=== PATIENT | female | born 2000 ===

== ENCOUNTER 2024-07-18 14:15 | Outpatient (OUT) | payer BC, SELFPAY ==
--- NOTE | 2024-07-18 14:25 | US_ITS ---
The [address] [address] Patient Name: RICKEY HERNANDEZ MRN: [id number] date: 2000 Sex: F Assigned Patient Location: US Current Patient Location: Accession/Order Number: [id number] Exam Date: 07/18/2024 14:30 Report Date: 07/19/2024 07:31 At the request of: JANELLE BUENROSTRO Procedure: US pelvis w/ transvaginal EXAMINATION: US pelvis w/ transvaginal HISTORY: Right ovarian cyst seen on outside CT study COMPARISON: No relevant comparison available. TECHNIQUE: Transabdominal and/or transvaginal sonographic examination was performed as indicated by examination type. FINDINGS: UTERUS: Normal size and appearance. Uterus size: 6.0 x 2.9 x 2.4 cm ENDOMETRIUM: Normal homogeneous appearance. Endometrial thickness: 3 RIGHT OVARY: Contains a 1.7 cm dominant follicle versus benign-appearing cyst, and several other smaller follicles. Duplex Doppler demonstrates normal waveform and flow; resistive index 4.0 x 2.4 x 2.6 cm. Ovary size: 0.5 LEFT OVARY: Normal size and appearance. Duplex Doppler demonstrates normal waveform and flow; resistive index 2.5 x 2.2 x 1.6 cm. Ovary size: 0.6 CUL-DE-SAC: Unremarkable. No significant free fluid. BLADDER: Unremarkable. OTHER: None. US/US pelvis w/ transvaginal IMPRESSION: 1. Right ovarian cyst consistent with a benign cyst/dominant follicle. 2. No suspicious findings. Electronically authenticated by: MARY DONOHUE Date: 07/19/2024 07:31
== END 2024-07-18 14:16 | disposition home or self-care (01) ==
LOC: US 14:18
PROVIDERS: Visit Provider Obstetrics & Gynecology
DX: N83.201 Unspecified ovarian cyst, right side (principal)
CPT/HCPCS: 76830; 76856

== ENCOUNTER 2024-08-28 14:29 | Outpatient (REF) | payer BC, SELFPAY ==
--- OUTSIDE RECORDS SUMMARY | 2024-08-28 14:45 | XMS_ITS | CCD ---
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 Comment on above: Performed By: #### L IPASE, MG, CMP, CBC #### [facility] [address] [place] [address] [place] Creatinine [Mass/volume] in Serum or PlasmaOrdered By: Jacy Santos on 06-30-2024 Creatinine [Mass/Vol] Creatinine [Mass/v olume] in Serum or Plasma 0.60-1.[address] [facility] Eosinophils Auto (Bld) [#/Vo l]Ordered By: Jacy Santos on 06-30-2024 Eosinophils (Bld) [#/Vol] Automated eosinophil count 0.0-0.45 [facility] Eosinophils/100 WBC Auto (Bl d)Ordered By: Jacy Santos on 06-30-2024 Eosinophils/100 WBC (Bld) Automated eosinophil % . [facility] Erythrocyte distribution wid th Auto (RBC) [Ratio]Ordered By: Jacy Santos on 06-30-2024 Erythrocyte distribution width (RBC) [Ratio] Erythrocyte distribution width [Ratio] by Automated count 11.9-15.[address] [facility] Globulin Calc (S) [Mass/Vol] Ordered By: Jacy Santos on 06-30-2024 Globulin (S) [Mass/Vol] Serum globulin measurement by calculation (mass/volume) [facility] Glucose [Mass/volume] in Ser um or PlasmaOrdered By: Jacy Santos on 06-30-2024 Glucose [Mass/Vol] Glucose [Mass/volume ] in Serum or Plasma Low 70-[address] [facility] Comment on above: ADA recommended refe rence rangeRandom Glucose Reference Range is dependent on time and content of last meal. Glucose of more than 200 mg/dL in a nonstressed, ambulatory subject supports the diagnosis of Diabetes Mellitus. Glucose [Mass/volume] in Uri ne by Test stripOrdered By: Jacy Santos on 06-30-2024 Glucose Test strip (U) [Mass/Vol] Glucose [Mass/volume] in Urine by Test strip Normal [facility] HCG ( test) IA.rapi d Ql (U)Ordered By: Jacy Santos on 06-30-2024 HCG ( test) Ql (U) Urine human chorionic gonadotropin (hCG) detection by immunoassay [facility] HCG,Urineon 06-30-2024 Beta HCG ( test) Ql (U) Negative Normal [facility] Comment on above: Order Comment: Name Collection Type:: Clean-Voided Midstream Result Comment: PERF ORMED BY: [place] [address] PATHOLOGIST CLINICAL APPEALS REVIEWER SUMMER RAMON M.D. Performed By: #### U A, [facility] #### [address] Hematocrit Auto (Bld) [Volum e fraction]Ordered By: Jacy Santos on 06-30-2024 Hematocrit (Bld) [Volume fraction] Hematocrit [Volume Fraction] of Blood by Automated count 34.0-46.[address] [facility] Hemoglobin Test strip Ql (U) Ordered By: Jacy Santos on 06-30-2024 Hemoglobin Ql (U) Hemoglobin [Presence ] in Urine by Test strip Negative [facility] Hemoglobin [Mass/volume] in BloodOrdered By: Jacy Santos on 06-30-2024 Hemoglobin (Bld) [Mass/Vol] Hemoglobin [Mass/volume] in Blood 11.8-15.[address] [facility] Ketones Test strip Ql (U)Ord ered By: Jacy Santos on 06-30-2024 Ketones Ql (U) Ketones [Presence] i n Urine by Test strip Negative [facility] Leukocyte esterase [Presence ] in Urine by Test stripOrdered By: Jacy Santos on 06-30-2024 Leukocyte esterase Test strip Ql (U) Leukocyte esterase [Presence] in Urine by Test strip Negative [facility] Leukocytes [#/volume] correc michael for nucleated erythrocytes in Blood by Automated counOrdered By: Jacy Santos on 06-30-2024 WBC corrected for nucl RBC Auto (Bld) [#/Vol] Leukocytes [#/volume] corrected for nucleated erythrocytes in Blood by Automated coun 3.8-11.[address] [facility] Lipaseon 06-30-2024 Lipase [Catalytic activity/Vol] 13.0 U/L Normal 11.0-82.0 [facility] Comment on above: Result Comment: PERF ORMED BY: [place] [address] PATHOLOGIST CLINICAL APPEALS REVIEWER SUMMER RAMON M.D. Performed By: #### L IPASE, MG, CMP, CBC #### [facility] [address] [place] [address] Lipase [Enzymatic activity/v olume] in Serum or PlasmaOrdered By: Jacy Santos on 06-30-2024 Lipase [Catalytic activity/Vol] Lipase [Enzymatic activity/volume] in Serum or Plasma 11.0-82.[address] [facility] Lymphocytes Auto (Bld) [#/Vo l]Ordered By: Jacy Santos on 06-30-2024 Lymphocytes (Bld) [#/Vol] Lymphocytes [#/volume] in Blood by Automated count 1.00-4.[address] [facility] Lymphocytes/100 WBC Auto (Bl d)Ordered By: Jacy Santos on 06-30-2024 Lymphocytes/100 WBC (Bld) Lymphocytes/100 leukocytes in Blood by Automated count . [facility] MCH Auto (RBC) [Entitic mass ]Ordered By: Jacy Santos on 06-30-2024 MCH (RBC) [Entitic mass] MCH [Entitic mass] by Automated count 24.7-34.[address] [facility] MCHC Auto (RBC) [Mass/Vol]Or dered By: Jacy Santos on 06-30-2024 MCHC (RBC) [Mass/Vol] MCHC [Mass/volume] by Automated count 32.0-35.[address] [facility] MCV Auto (RBC) [Entitic vol] Ordered By: Jacy Santos on 06-30-2024 MCV (RBC) [Entitic vol] MCV [Entitic volume] by Automated count 80-[address] [facility] Magnesiumon 06-30-2024 Magnesium [Mass/Vol] 2.1 mg/dL Normal 1.9-2.7 [facility] Comment on above: Performed By: #### L IPASE, MG, CMP, CBC #### [address] Magnesium [Mass/volume] in S lia or PlasmaOrdered By: Jacy Santos on 06-30-2024 Magnesium [Mass/Vol] Magnesium [Mass/vol ume] in Serum or Plasma 1.9-2.[address] [facility] Monocyte distribution width [Entitic volume] in Blood by AutomatedOrdered By: Jacy Santos on 06-30-2024 Monocyte distribution width Auto (Bld) [Entitic vol] Monocyte distribution width [Entitic volume] in Blood by Automated 0.00-20.[address] [facility] Monocytes Auto (Bld) [#/Vol] Ordered By: Jacy Santos on 06-30-2024 Monocytes (Bld) [#/Vol] Automated blood monocyte count 0.0-0.[address] [facility] Monocytes/100 WBC Auto (Bld) Ordered By: Jacy Santos on 06-30-2024 Monocytes/100 WBC (Bld) Automated monocyte % . [facility] Neutrophils Auto (Bld) [#/Vo l]Ordered By: Jacy Santos on 06-30-2024 Neutrophils (Bld) [#/Vol] Neutrophils [#/volume] in Blood by Automated count 1.8-7.[address] [facility] Neutrophils/100 WBC Auto (Bl d)Ordered By: Jacy Santos on 06-30-2024 Neutrophils/100 WBC (Bld) Automated neutrophil % . [facility] Nitrite Test strip Ql (U)Ord ered By: Jacy Santos on 06-30-2024 Nitrite Ql (U) Nitrite [Presence] i n Urine by Test strip Negative [facility] No Panel InformationOrdered By: Jacy Santos on 06-30-2024 Estimated GFR (CKD-EPI) > 60.0 mL/Min [facility] Pharmacy Creatinine Clearance (Chem 123.[address] [facility] Nucleated erythrocytes [Pres ence] in Blood by Automated countOrdered By: Jacy Santos on 06-30-2024 Nucleated RBC Auto Ql (Bld) Nucleated erythrocytes [Presence] in Blood by Automated count 0-0.[address] [facility] Platelet mean volume Auto (B ld) [Entitic vol]Ordered By: Jacy Santos on 06-30-2024 Platelet mean volume (Bld) [Entitic vol] Platelet mean volume [Entitic volume] in Blood by Automated count 6.3-10.[address] [facility] Platelets Auto (Bld) [#/Vol] Ordered By: Jacy Santos on 06-30-2024 Platelets (Bld) [#/Vol] Platelets [#/volume] in Blood by Automated count 150-[address] [facility] Potassium [Moles/volume] in Serum or PlasmaOrdered By: Jacy Santos on 06-30-2024 Potassium [Moles/Vol] Potassium [Moles/v olume] in Serum or Plasma 3.5-5.[address] [facility] Protein Test strip (U) [Mass /Vol]Ordered By: Jacy Santos on 06-30-2024 Protein (U) [Mass/Vol] Protein [Mass/vol ume] in Urine by Test strip Negative [facility] Protein [Mass/volume] in Ser um or PlasmaOrdered By: Jacy Santos on 06-30-2024 Protein [Mass/Vol] Protein [Mass/volume ] in Serum or Plasma 6.4-8.[address] [facility] RBC Auto (Bld) [#/Vol]Ordere d By: Jacy Santos on 06-30-2024 RBC (Bld) [#/Vol] Erythrocytes [#/volu me] in Blood by Automated count 3.60-5.[address] [facility] Respiratory specimen influen za A virus, influenza B virus, respiratory syncytical virOrdered By: Jacy Santos on 06-30-2024 SARS-CoV-2 (COVID-19) RNA ROXI+probe Ql (Unsp spec) Respiratory specimen influenza A virus, influenza B virus, respiratory syncytical vir [facility] Serum or plasma albumin/glob ulin mass ratioOrdered By: Jacy Santos on 06-30-2024 Albumin/Globulin [Mass ratio] Serum or plasma albumin/globulin mass ratio [facility] Serum or plasma anion gap de terminationOrdered By: Jacy Santos on 06-30-2024 Anion gap [Moles/Vol] Serum or plasma an ion gap determination 6.0-15.[address] [facility] Sodium [Moles/volume] in Ser um or PlasmaOrdered By: Jacy Santos on 06-30-2024 Sodium [Moles/Vol] Sodium [Moles/volume ] in Serum or Plasma 136-[address] [facility] Specific gravity Test strip (U) [Rel density]Ordered By: Jacy Santos on 06-30-2024 Specific gravity (U) [Rel density] Specific gravity of Urine by Test strip High 1.001-1.[address] [facility] Urea nitrogen [Mass/volume] in Serum or PlasmaOrdered By: Jacy Santos on 06-30-2024 Urea nitrogen [Mass/Vol] Urea nitrogen [Mass/volume] in Serum or Plasma 7-[address] [facility] Urinalysison 06-30-2024 Appearance (U) Clear Normal Clear [facility] Comment on above: Order Comment: Name Collection Type:: Clean-Voided Midstream Performed By: #### U A, UHCG #### [facility] [address] [place] [address] [place] Bilirubin,Urine Negative Normal Negative [facility] Comment on above: Order Comment: Name Collection Type:: Clean-Voided Midstream Performed By: #### U A, UHCG #### [address] Color (U) Light-Yellow Normal Yellow [facility] Comment on above: Order Comment: Name Collection Type:: Clean-Voided Midstream Performed By: #### U A, UHCG #### [address] Glucose Ql (U) Normal Normal Normal [facility] Comment on above: Order Comment: Name Collection Type:: Clean-Voided Midstream Performed By: #### U A, UHCG #### [address] Ketones Ql (U) Negative Normal Negative [facility] Comment on above: Order Comment: Name Collection Type:: Clean-Voided Midstream Performed By: #### U A, UHCG #### [address] Leukocyte esterase Test strip Ql (U) Negative Normal Negative [facility] Comment on above: Order Comment: Name Collection Type:: Clean-Voided Midstream Performed By: #### U A, UHCG #### [place] [address] [place] Nitrite,Urine Negative Normal Negative [facility] Comment on above: Order Comment: Name Collection Type:: Clean-Voided Midstream Performed By: #### U A, UHCG #### [place] [address] [place] Occult Blood,Urine Negative Normal Negative [facility] Comment on above: Order Comment: Name Collection Type:: Clean-Voided Midstream Performed By: #### U A, UHCG #### [place] [address] [place] pH (U) 6.0 [pH] Normal 5.0-9.0 [facility] Comment on above: Order Comment: Name Collection Type:: Clean-Voided Midstream Performed By: #### U A, UHCG #### [facility] [address] Protein,Urine Negative Normal Negative [facility] Comment on above: Order Comment: Name Collection Type:: Clean-Voided Midstream Performed By: #### U A, UHCG #### [facility] [address] Specificy [place],Urine 1.032 High 1.001-1.030 [facility] Comment on above: Order Comment: Name Collection Type:: Clean-Voided Midstream Performed By: #### U A, UHCG #### [facility] [address] Urobilinogen,Urine Normal Normal Normal [facility] Comment on above: Order Comment: Name Collection Type:: Clean-Voided Midstream Performed By: #### U A, UHCG #### [address] Urobilinogen Test strip (U) [Mass/Vol]Ordered By: Jacy Santos on 06-30-2024 Urobilinogen (U) [Mass/Vol] Urobilinogen [Mass/volume] in Urine by Test strip Normal [facility] WBC Auto (Bld) [#/Vol]Ordere d By: Jacy Santos on 06-30-2024 WBC (Bld) [#/Vol] Leukocytes [#/volume ] in Blood by Automated count 3.8-11.[address] [facility] pH Test strip (U)Ordered By: Jacy Santos on 06-30-2024 pH (U) pH of Urine by Test strip 5.0-9.[address] [facility] PAP ACOG PANEL 2: to 29on 11-09-2022 . . Normal [facility] Comment on above: Performed By: #### [id number] #### [facility] [address] [address] [address] Elizabeth Ta Age Gdln ACOG Testing Normal [facility] Comment on above: Performed By: #### [id number] #### [facility] [address] [place] [address] Dr. Elizabeth Ta DIAGNOSIS: Comment Normal [facility] Comment on above: Result Comment: NEGA TIVE FOR INTRAEPITHELIAL LESION OR MALIGNANCY. Performed By: #### [id number] #### [facility] [address] [place] [address] Dr. Elizabeth Ta Methodology: Comment Normal [facility] Comment on above: Result Comment: This liquid based ThinPrep(R) pap test was screened with the use of an image guided system. Performed By: #### [id number] #### [facility] [address] [place] [address] Dr. Elizabeth Ta Note: Comment Normal [facility] Comment on above: Result Comment: The Pap smear is a screening test designed to aid in the detection of premalignant and malignant conditions of the uterine cervix. It is not a diagnostic procedure and should not be used as the sole means of detecting cervical cancer. Both false-positive and false-negative reports do occur. . Performed By: #### [id number] #### [facility] [address] [place] [address] Dr. Elizabeth Ta Performed by: Comment Normal [facility] Comment on above: Result Comment: Syed Puentes, Migrant Leader (ASCP) Performed By: #### [id number] #### [facility] [address] [place] [address] Dr. Elizabeth Ta Reflex Criteria: Comment [facility] Comment on above: Result Comment: The HPV DNA reflex criteria were not met with this specimen result therefore, no HPV testing was performed. . Performed By: #### [id number] #### [facility] [address] [place] [address] Dr. Elizabeth Ta Specimen adequacy: Comment Normal [facility] Comment on above: Result Comment: Sati sfactory for evaluation. Endocervical and/or squamous metaplastic cells (endocervical component) are present. Performed By: #### [id number] #### [facility] [address] [place] [address] Dr. Elizabeth Ta Amphetamine Screen Ql (U)Ord ered By: Ney Perez on 04-20-2022 Amphetamines Ql (U) Negative Negative [facility] Barbiturates [Presence] in U rineOrdered By: Ney Perez on 04-20-2022 Barbiturates Ql (U) Negative Negative [facility] Benzodiazepines [Presence] i n UrineOrdered By: Ney Perez on 04-20-2022 Benzodiazepines Ql (U) Negative Negative [facility] Cannabinoids [Presence] in U rine by Screen methodOrdered By: Ney Perez on 04-20-2022 Cannabinoids Screen Ql (U) Positive Negative [facility] Comment on above: These are unconfirme d results and should not be used for legal purposes. Drug Cut-Off Concentration: AMPH 1000 ng/mL GREGORIA 200 ng/mL JENNY 200 ng/mL COCM 300 ng/mL OP 300 ng/mL PCP 25 ng/mL THC 20 ng/mL HCG ( test) IA.rapi d Ql (U)Ordered By: Ney Perez on 04-20-2022 HCG ( test) Ql (U) Negative [facility] Laboratory - Drug toxicology Ordered By: Ney Perez on 04-20-2022 Opiates Ql (U) Negative Negative [facility] Phencyclidine Screen Ql (U)O rdered By: Ney Perez on 04-20-2022 Phencyclidine Ql (U) Negative Negative [facility] Urine cocaine detectionOrder ed By: Ney Perez on 04-20-2022 Cocaine Ql (U) Negative Negative [facility] Albumin [Mass/volume] in Ser um or PlasmaOrdered By: Ney Perez on 04-18-2022 Albumin [Mass/Vol] 4.2 g/dL 3.2-5.5 [facility] Basophils Auto (Bld) [#/Vol] Ordered By: Ney Perez on 04-18-2022 Basophils (Bld) [#/Vol] 0.0 10*3/uL 0.0-0.[address] [facility] Basophils/100 WBC Auto (Bld) Ordered By: Ney Perez on 04-18-2022 Basophils/100 WBC (Bld) 1.1 % . [facility] COVID-19 Positive/NegativeOr dered By: Ney Perez on 04-18-2022 SARS-CoV-2 (COVID-19) N gene ROXI+probe Ql (Resp) Negative Negative [facility] Comment on above: Testing for SARS-CoV -2 by RT-PCRThis test was developed and its performance characteristics determined by [employer] ([employer]) and validated at the [facility]. This test has not been FDA cleared or approved. This test has been authorized by FDA under an Emergency Use Authorization (EUA). This test has been validated in accordance with the FDA's Guidance Document (Policy for Diagnostics Testing in Laboratories Certified to Perform High Complexity Testing under CLIA prior to Emergency Use Authorization for Coronavirus Disease-2019 during the Public Health Emergency) issued on October 03, 2019. This test is only authorized for the duration of time the declaration that circumstances exist justifying the authorization of the emergency use of in vitro diagnostic tests for detection of SARS-CoV-2 virus and/or diagnosis of COVID-19 infection under section 564(b)(1) of the Act, 21 U.S.C. 360bbb-3(b)(1), unless the authorization is terminated or revoked sooner. Creatinine and Glomerular fi ltration rate.predicted panel (S/P/Bld)Ordered By: Ney Perez on 04-18-2022 Creatinine [Mass/Vol] 0.70 mg/dL 0.44-1.03 [facility] Eosinophils Auto (Bld) [#/Vo l]Ordered By: Ney Perez on 04-18-2022 Eosinophils (Bld) [#/Vol] 0.1 10*3/uL 0.0-0.[address] [facility] Eosinophils/100 WBC Auto (Bl d)Ordered By: Ney Perez on 04-18-2022 Eosinophils/100 WBC (Bld) 1.4 % . [facility] Erythrocyte distribution wid th Auto (RBC) [Ratio]Ordered By: Ney Perez on 04-18-2022 Erythrocyte distribution width (RBC) [Ratio] 13.0 % 11.9-15.[address] [facility] Estimated glomerular filtrat ion rate (GFR) non- AmericanOrdered By: Ney Perez on 04-18-2022 GFR/1.73 sq M.predicted among non-blacks MDRD (S/P/Bld) [Vol rate/Area] > 60 mL/Min [facility] Globulin Calc (S) [Mass/Vol] Ordered By: Ney Perez on 04-18-2022 Globulin (S) [Mass/Vol] 2.4 g/dL [facility] Hematocrit Auto (Bld) [Volum e fraction]Ordered By: Ney Perez on 04-18-2022 Hematocrit (Bld) [Volume fraction] 40.3 % 34.0-46.[address] [facility] Hemoglobin [Mass/volume] in BloodOrdered By: Ney Perez on 04-18-2022 Hemoglobin (Bld) [Mass/Vol] 13.4 g/dL 11.8-15.[address] [facility] Laboratory - CoagulationOrde red By: Ney Perez on 04-18-2022 PT Coag (PPP) [Time] 11.6 s 9.0-12.9 [facility] - Hematology and Cell countsOrdered By: Ney Perez on 04-18-2022 Nucleated RBC/100 WBC (Bld) [Ratio] 0.1 % 0-0.[address] [facility] Leukocytes [#/volume] in Blo od by Automated countOrdered By: Ney Perez on 04-18-2022 WBC (Bld) [#/Vol] 4.5 10*3/uL 4.5-11.0 [facility] Lymphocytes Auto (Bld) [#/Vo l]Ordered By: Ney Perez on 04-18-2022 Lymphocytes (Bld) [#/Vol] 1.8 10*3/uL 1.00-4.[address] [facility] Lymphocytes/100 WBC Auto (Bl d)Ordered By: Ney Perez on 04-18-2022 Lymphocytes/100 WBC (Bld) 39.0 % . [facility] MCH Auto (RBC) [Entitic mass ]Ordered By: Ney Perez on 04-18-2022 MCH (RBC) [Entitic mass] 31.4 pg 24.7-34.[address] [facility] MCHC Auto (RBC) [Mass/Vol]Or dered By: Ney Perez on 04-18-2022 MCHC (RBC) [Mass/Vol] 33.2 g/dL 32.0-35.0 [facility] MCV Auto (RBC) [Entitic vol] Ordered By: Ney Perez on 04-18-2022 MCV (RBC) [Entitic vol] 94.4 fL 80-[address] [facility] Monocytes Auto (Bld) [#/Vol] Ordered By: Ney Perez on 04-18-2022 Monocytes (Bld) [#/Vol] 0.5 10*3/uL 0.0-0.[address] [facility] Monocytes/100 WBC Auto (Bld) Ordered By: Ney Perez on 04-18-2022 Monocytes/100 WBC (Bld) 10.3 % . [facility] Neutrophils Auto (Bld) [#/Vo l]Ordered By: Ney Perez on 04-18-2022 Neutrophils (Bld) [#/Vol] 2.2 10*3/uL 1.8-7.[address] [facility] Neutrophils/100 WBC Auto (Bl d)Ordered By: Ney Perez on 04-18-2022 Neutrophils/100 WBC (Bld) 48.2 % . [facility] [facility] No Panel InformationOrdered By: Ney Perez on 04-18-2022 Estimated GFR () > 60 mL/Min [facility] Comment on above: GFR estimated refere nce range: According to KDOQI guidelines, <60 ml/min/1.73m2 is sufficient to diagnose a patient with chronic kidney disease. Pharmacy Creatinine Clearance (Chem N/A [facility] Platelet mean volume Auto (B ld) [Entitic vol]Ordered By: Ney Perez on 04-18-2022 Platelet mean volume (Bld) [Entitic vol] 9.2 fL 6.3-10.[address] [facility] Platelet poor plasma interna tional normalized ratio (INR) by coagulation assay (relatOrdered By: Ney Perez on 04-18-2022 INR Coag (PPP) [Relative time] 1.0 {INR} [facility] Comment on above: INR Therapeutic Rang e A) Pre- and Peroperative OAT started two weeks before surgery. NOT HIP SURGERY: 1.5 - 2.5 HIP SURGERY: 2 - 3B) Primary and secondary prevention of venous THROMBOSIS: 2 - 3C) Active venous thrombosis, pulmonary embolismand prevention of recurrent venous thrombosis: 2 - 3D) Prevention of arterial thromboembolismincluding patients with mechanical heart valves: 3 - 4.5 Platelets Auto (Bld) [#/Vol] Ordered By: Ney Perez on 04-18-2022 Platelets (Bld) [#/Vol] 217 10*3/uL 150-[address] [facility] Protein [Mass/volume] in Ser um or PlasmaOrdered By: Ney Perez on 04-18-2022 Protein [Mass/Vol] 6.6 g/dL 6.1-7.9 [facility] RBC Auto (Bld) [#/Vol]Ordere d By: Ney Perez on 04-18-2022 RBC (Bld) [#/Vol] 4.27 10*6/uL 3.60-5.00 [facility] Serum or plasma alanine acuna otransferase measurement without P-5'-P (enzymatic activiOrdered By: Ney Perez on 04-18-2022 ALT No additional P-5'-P [Catalytic activity/Vol] 14 U/L [facility] Serum or plasma albumin/glob ulin mass ratioOrdered By: Ney Perez on 04-18-2022 Albumin/Globulin [Mass ratio] 1.8 {ratio} [facility] Serum or plasma alkaline karly sphatase measurement (enzymatic activity/volume)Ordered By: Ney Perez on 04-18-2022 ALP [Catalytic activity/Vol] 35 U/L 32-[address] [facility] Serum or plasma anion gap de terminationOrdered By: Ney Perez on 04-18-2022 Anion gap [Moles/Vol] 11.9 mmol/L 6.0-15.0 [facility] Serum or plasma aspartate am inotransferase measurement (enzymatic activity/volume)Ordered By: Ney Perez on 04-18-2022 AST [Catalytic activity/Vol] 15 U/L [facility] Serum or plasma calcium rubi urement (mass/volume)Ordered By: Ney Perez on 04-18-2022 Calcium [Mass/Vol] 9.3 mg/dL 8.2-10.2 [facility] Serum or plasma chloride shannon surement (moles/volume)Ordered By: Ney Perez on 04-18-2022 Chloride [Moles/Vol] 105 mmol/L 95-114 [facility] Serum or plasma glucose rubi urement (mass/volume)Ordered By: Ney Perez on 04-18-2022 Glucose [Mass/Vol] 75 mg/dL 70-100 [facility] Comment on above: ADA recommended refe rence rangeRandom Glucose Reference Range is dependent on time and content of last meal. Glucose of more than 200 mg/dL in a nonstressed, ambulatory subject supports the diagnosis of Diabetes Mellitus. Serum or plasma potassium me asurement (moles/volume)Ordered By: Ney Perez on 04-18-2022 Potassium [Moles/Vol] 4.3 mmol/L 3.5-5.1 [facility] Serum or plasma sodium measu rement (moles/volume)Ordered By: Ney Perez on 04-18-2022 Sodium [Moles/Vol] 139 mmol/L 136-146 [facility] Serum or plasma total biliru bin measurement (mass/volume)Ordered By: Ney Perez on 04-18-2022 Bilirubin [Mass/Vol] 0.8 mg/dL 0.3-1.2 [facility] Serum or plasma total carbon dioxide measurement (moles/volume)Ordered By: Ney Perez on 04-18-2022 CO2 [Moles/Vol] 26.4 mmol/L 22.0-30.0 [facility] Serum or plasma urea nitroge n measurement (mass/volume)Ordered By: Ney Perez on 04-18-2022 Urea nitrogen [Mass/Vol] 10 mg/dL 9-[address] [facility] TSH DL <= 0.005 mIU/L QnOrde red By: Ney Perez on 04-18-2022 TSH Qn 0.70 m[IU]/L 0.45-5.[address] [facility] Thyroxine (T4) free [Mass/vo lume] in Serum or PlasmaOrdered By: Ney Perez on 04-18-2022 Free T4 [Mass/Vol] 0.96 ng/dL 0.61-1.12 [facility] Vital Signs Date Time Vital Sign Value Performing Clinician Facility 08-21-2024 21:37-0500 Body height 177.8 cm PHYSICIAN NO [facility] 08-21-2024 21:37-0500 Body temperature 98.1 [degF] PHYSICIAN NO [facility] 08-21-2024 21:37-0500 Body weight 86 kg PHYSICIAN NO [facility] 08-21-2024 21:37-0500 Diastolic blood pressure 85 mm[Hg] PHYSICIAN NO [facility] 08-21-2024 21:37-0500 Heart rate 82 /min PHYSICIAN NO [facility] 08-21-2024 21:37-0500 Respiratory rate 18 /min PHYSICIAN NO [facility] 08-21-2024 21:37-0500 SaO2% (BldA) [Mass fraction] 97 % PHYSICIAN NO [facility] 08-21-2024 21:37-0500 Systolic blood pressure 143 mm[Hg] PHYSICIAN NO [facility] 06-30-2024 19:58-0500 Diastolic blood pressure 60 mm[Hg] PHYSICIAN NO [facility] 06-30-2024 19:58-0500 Heart rate 88 /min PHYSICIAN NO [facility] 06-30-2024 19:58-0500 Respiratory rate 18 /min PHYSICIAN NO [facility] 06-30-2024 19:58-0500 SaO2% (BldA) [Mass fraction] 98 % PHYSICIAN NO [facility] 06-30-2024 19:58-0500 Systolic blood pressure 119 mm[Hg] PHYSICIAN NO [facility] 06-30-2024 16:09-0500 Body height 173.99 cm PHYSICIAN NO [facility] 06-30-2024 16:09-0500 Body temperature 98.1 [degF] PHYSICIAN NO [facility] 06-30-2024 16:09-0500 Body weight 86 kg PHYSICIAN NO [facility] 12-12-2023 15:40-0400 Body height 177.8 cm [facility] 12-12-2023 15:40-0400 Body mass index (BMI) [Ratio] 22.6 kg/m2 [facility] 12-12-2023 15:40-0400 Body temperature 98.1 [degF] [facility] 12-12-2023 15:40-0400 Body weight 71.72 kg [facility] 12-12-2023 15:40-0400 Heart rate 78 /min [facility] 12-12-2023 15:40-0400 Respiratory rate 18 /min [facility] 12-12-2023 15:40-0400 SaO2% (BldA) [Mass fraction] 98 % [facility] 05-21-2023 08:34-0500 Body temperature 98.7 [degF] PHYSICIAN NO [facility] 05-21-2023 08:34-0500 Diastolic blood pressure 72 mm[Hg] PHYSICIAN NO [facility] 05-21-2023 08:34-0500 Heart rate 92 /min PHYSICIAN NO [facility] 05-21-2023 08:34-0500 Respiratory rate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
[2024-08-30 22:10] LABS: Age Gdln ACOG Testing Note (.); IGP, rfx Aptima HPV ASCU Note (.)
== END 2024-08-28 14:30 | disposition home or self-care (01) ==
LOC: LAB 14:29
PROVIDERS: Visit Provider Physician Assistant
DX: Z01.419 Encounter for gynecological examination (general) (routine) without abnormal findings (principal)
CPT/HCPCS: 88175